=== PATIENT | male | born 1980 | race Caucasian/White ===

== ENCOUNTER 2017-10-22 20:54 | Emergency (ER) | payer SELFPAY ==
[2017-10-22 21:08] VITALS: BP 126/87; PULSE 79; RESP 18; TEMP 98.3; O2SAT 100
--- NOTE | 2017-10-22 22:00 | C.PDOC ---
History Of Present Illness 37yo male with history of athlete's foot and not currently on a treatment, presents to ER with complaints of right foot pain, below the great toe for the psst 3 days. He reports associated swelling to dorsum of foot and lateral ankle. He denies any trauma, injury, fever or chills. He reports taking 2 Advil BID with no relief of symptoms. He has no other medical complaints. Time Seen by Provider: 10/22/17 21:19 Chief Complaint (Nursing): Lower Extremity Problem/Injury History Per: Patient History/Exam Limitations: no limitations Onset/Duration Of Symptoms: Days Current Symptoms Are (Timing): Still Present Additional History Per: Patient Past Medical History Reviewed: Historical Data, Nursing Documentation, Vital Signs Vital Signs: Last Vital Signs Temp 98.3 F 10/22/17 21:05 Pulse 79 10/22/17 21:05 Resp 18 10/22/17 21:05 BP 126/87 10/22/17 21:05 Pulse Ox 100 10/24/17 11:45 - Medical History PMH: No Chronic Diseases Other PMH: athletes foot Surgical History: No Surg Hx Family History: States: No Known Family Hx Denies: DE - Social History Hx Tobacco Use: No Hx Alcohol Use: Yes Hx Substance Use: No - Immunization History Hx Tetanus Toxoid Vaccination: No Hx Influenza Vaccination: No Hx Pneumococcal Vaccination: No Review Of Systems Constitutional: Negative for: Fever, Chills Musculoskeletal: Positive for: Foot Pain (right foot pain below great toe. ) Neurological: Negative for: Weakness, Numbness Physical Exam - Physical Exam Appears: Non-toxic, No Acute Distress Skin: Warm, Dry Extremity: Normal ROM (FROM right ankle), Tenderness (tenderness to proximalr 1st metatarsal on right foot. ), Capillary Refill (< 2 seconds), No Deformity, Swelling (mild swelling to dorsum of right foot and lateral ankle.), Other (no warmth, +mild erythema, and white, moist areas noted between all web spaces on right foot. ) Pulses: Left Dorsalis Pedis: Normal, Right Dorsalis Pedis: Normal Neurological/Psych: Oriented x3, Normal Speech, Normal Cognition ED Course And Treatment O2 Sat by Pulse Oximetry: 100 (RA) Pulse Ox Interpretation: Normal Medical Decision Making Medical Decision Making: pt with 3 day right foot pain to plantar surface at 1st proximal metatarsal. mild swelling. chronic athletes foot. no fx noted on xray. gout vs early infection 2/2 athletes foot, tx for pain and infection, f/u podiatry Disposition Counseled Patient/Family Regarding: Studies Performed, Diagnosis, Need For Followup, Rx Given - Disposition Referrals: [facility] [Outside] [facility] [Outside] Podiatry Clinic [Outside] Disposition: HOME/ ROUTINE Disposition Time: 22:04 Condition: GOOD Additional Instructions: Por favor tome los medicamentos segn lo recetado. Llame al servicio de conserjera maana para ayudar a clasificar el seguro y hacer emmanuel jenny de seguimiento en la clnica mdica y / o de podologa. Use polvo en los pies, mantenga los pies limpios y secos. Cambie los zapatos y los calcetines regularmente. Please take medications as prescribed. Call [facility] service tomorrow to help sort out insurance and to et follow up appointment at medical and /or podiatry clinic. Use powder on feet, Keep feet clean and dry. Change shoes and socks regularly. Prescriptions: Butenafine HCl [Lotrimin Ultra] 30 gm TP BID #1 cream..g. Cephalexin [cephalexin] 500 mg PO Q6 #28 cap Naproxen 500 mg PO BID #20 tab Instructions: Gout (DC), Athlete's Foot (DC) Forms: Gen Discharge Inst Malagasy, [facility] (Malagasy) - Clinical Impression Clinical Impression: Tinea pedis of right foot, Right foot pain - PA / GAS DISPATCHER / Resident Statement MD/DO has reviewed & agrees with the documentation as recorded. - Scribe Statement The provider has reviewed the documentation as recorded by the Scribe (Shawna Hernandez) Provider Attestation: All medical record entries made by the Scribe were at my direction and personally dictated by me. I have reviewed the chart and agree that the record accurately reflects my personal performance of the history, physical exam, medical decision making, and the department course for this patient. I have also personally directed, reviewed, and agree with the discharge instructions and disposition.
--- NOTE | 2017-10-23 08:33 | RAD ---
PROCEDURE: Right Foot Radiographs. HISTORY: pain to sole of foot prox 1st metatarsal COMPARISON: None. FINDINGS: BONES: Normal. No fracture. JOINTS: Normal. SOFT TISSUES: Normal. OTHER FINDINGS: None. IMPRESSION: Normal right foot radiographs.
== END 2017-10-22 22:32 | disposition home or self-care (01) ==
LOC: C.ER 20:54
DX: B35.3 Tinea pedis (principal); M79.671 Pain in right foot